=== PATIENT | male | born 1945 ===

== ENCOUNTER 2020-01-07 17:12 | Emergency (ER) | payer MEDICARE, OTHER, SELFPAY ==
[2020-01-07 17:20] VITALS: BP 81/63; PULSE 91; RESP 18; TEMP 36.8; O2SAT 97
[2020-01-07 17:33] VITALS: BP 94/67; PULSE 90; RESP 23; O2SAT 99
--- NOTE | 2020-01-07 17:38 | XRR_ITS ---
PROCEDURE INFORMATION: Exam: XR Chest, 1 View Exam date and time: 01/07/2020 5:39 PM Age: 74 years old Clinical indication: Other: Syncope TECHNIQUE: Imaging protocol: XR of the chest Views: 1 view. COMPARISON: No relevant prior studies available. FINDINGS: Lungs: Unremarkable. No consolidation. Pleural space: Unremarkable. No pleural effusion. No pneumothorax. Heart/Mediastinum: Unremarkable. No cardiomegaly. Bones/joints: Unremarkable. XR/XR chest 1V portable [id number] IMPRESSION: No acute findings.
--- NOTE | 2020-01-07 17:38 | ECG_ITS ---
[facility] Test Date: 2020-01-07 Pat Name: JAY ESTRADA Department: Room: Gender: Male On Call Pharmacy Technician: : [id number] Requested By: Morenita Armenta Order Number: [id number] Misti MD: Eliseo Ghosh M.D. Measurements Intervals [place] Rate: 89 P: 60 TN: 192 QRS: -81 QRSD: 131 T: 76 QT: 395 QTc: 482 Interpretive Statements SINUS RHYTHM WITH OCCASIONAL ECTOPIC PREMATURE COMPLEXES RIGHT BUNDLE BRANCH BLOCK [120+ ms QRS DURATION, UPRIGHT V1, 40+ ms S IN I/aVL/V4/V5/V6] Possible ANTERIOR MYOCARDIAL INFARCTION , PROBABLY RECENT [40+ ms Q WAVE AND/OR ST/T ABNORMALITY IN V3/V4] Possible INFERIOR MYOCARDIAL INFARCTION , OF INDETERMINATE AGE [40+ ms Q WAVE AND/OR ST/T ABNORMALITY IN II/aVF] No previous ECG available for comparison Electronically Signed On 01-08-2020 8:04:13 CDT by Eliseo Ghosh M.D. [id number]
--- NOTE | 2020-01-07 17:41 | ED_ITS ---
Documented by User: Morenita Dwyer MD 01/09/20 10:57 HPI - Syncope General: Chief Complaint: Syncope Stated Complaint: SYNCOPE Time Seen by Provider: 01/07/20 17:15 History of Present Illness: HPI narrative: This patient is a 74-year-old male who presents with a syncopal episode and possibly cardiac arrest briefly. He [place] of [place] in [place] and traveled up here yesterday to visit family. He said he had a dizzy spell yesterday while traveling. He has a history of having episodes of dizziness and did not think anything of it. He did not really eat anything yesterday until the evening when he had a ham orourke dwich and some banana pudding. This morning he ate a couple of eggs and toast. This afternoon he was at his sister's house and sitting outside. He was in the shade with the breeze blowing but family is concerned he may have been overheated. He did not eat lunch. He had been drinking some water. At around 3:00 family started feeling concerned that he was not acting right. He was not really responsive and they noted that his hands seem to be cramping up. This gradually worsened over a couple of hours and then he was noted to slump over in his chair. They noted that he was not breathing and laid him back on the ground. His family did CPR for about 1 minute and he became conscious again. They turned him on his side and quite a bit of saliva came out. Not emesis. The patient has no recollection of this. He said he did feel tired and had a sour stomach today. He had some loose bowel movements in the morning. He denies chest pain or palpitations. He denies cough or fever. He has a history of hypertension but is otherwise pretty healthy and active. There is family history of stroke and cardiac disease. He does not have any exposure to COVID that he knows of. He does not live in an area where it is particularly prevalent. complaint: loss of consciousness and collapsed Onset (ago): hour(s) (Just prior to arrival) Associated symptoms: Deny abdominal pain, chest pain, fever(s), headache(s) or nausea Review of Systems General: Reports: 10 or more systems reviewed and unremarkable except in HPI and below Const: Reports: fatigue; Denies: fever(s), chills or malaise Eyes: Denies: change in vision ENMT: Denies: odynophagia Card: Denies: chest pain or swelling of feet/ankles Resp: Denies: dyspnea, productive cough or non-productive cough GI: Reports: diarrhea; Denies: abdominal pain, nausea or vomiting : Denies: flank pain Musc: Denies: neck pain or back pain Skin/Breast: Denies: rash Neuro: Denies: headache(s), numbness in extremities or weakness in extremities Donald/Lymph: Denies: easy bruising or easy bleeding PFS ED PFSH: Medical History (Updated 01/07/20 @ 20:05 by Susu Hernandez MD) Hypertension Physical Exam Const: COMMON NORMALS: no acute distress, patient oriented x3, no limitations and alert GENERAL APPEARANCE: cooperative and comfortable HENMT: HEAD & SCALP: normal to inspection FACE & SINUS: normal facial exam Eye: GENERAL EYE: appearance normal, both eyes and all related structures Neck/C-Spine: COMMON NORMALS: supple, no meningeal signs and no JVD Chest: COMMONS NORMALS: normal inspection of the chest Resp: COMMON NORMALS: normal respiratory effort, No use of accessory muscles and clear to auscultation bilaterally AUSCULTATION: clear to auscultation bilaterally Cardio: COMMON NORMALS: no JVD, regular rate, regular rhythm and No murmurs present (Cardio) RATE: regular rate RHYTHM: regular rhythm GI: COMMON NORMALS: Normal to inspection, nondistended, normoactive bowel sounds present, Soft to palpation and non-tender INSPECTION: Yes normal to inspection AUSCULTATION: Yes normoactive bowel sounds PALPATION: Yes Soft to palpation Back/Pelvis: COMMON NORMALS: thoracic and lumbar spine normal to inspection Extremity: COMMON NORMALS: normal to inspection Neuro: COMMON NORMALS: patient oriented x3, moves all extremities, no focal motor deficits and no sensory deficits noted SENSORIUM/ORIENTATION: Yes alert MENINGEAL SIGNS: Yes no meningeal signs Psych: COMMON NORMALS: mental status grossly normal, cooperative and normal affect Skin: COMMON NORMALS: no rashes or lesions noted and turgor normal GENERAL SKIN EXAM: no rashes or lesions noted and turgor normal Course Vital Signs: Vital signs: Vital Signs Temperature 98.2 F 01/07/20 17:20 Pulse Rate 88 01/07/20 23:33 Respiratory Rate 16 01/07/20 23:33 Blood Pressure 140/93 01/07/20 23:33 Pulse Oximetry 99 01/07/20 23:33 MDM - Syncope MDM Narrative: Medical decision making narrative: Patient with gradual onset of altered mental status culminating in a syncopal episode. Per untrained bystanders he was not breathing and had no pulse and CPR was done for about a minute. He is hypotensive in the ED with blood pressures in the 80s and 90s systolic. His EKG is abnormal with a right bundle branch block and inferior Q waves. No old EKGs available for comparison. He is back to baseline as far as mental status. Very concerning presentation and he will require admission. Lab Data: Labs: Lab Results 01/07/20 01/07/20 01/07/20 Range/Units 17:43 17:58 17:58 WBC 14.2 H (4.0-10.0) 10^3/ uL RBC 5.50 H (4.1-5.3) 10^6/u L Hgb 15.8 (11.7-16.6) g/dL Hct 47.0 (42.0-52.0) % MCV 85.5 (80-94) fL MCH 28.7 (28.0-34.0) pg MCHC 33.6 (30.0-36.0) g/dL RDW 13.3 (12.1-15.1) % Plt Count 193 (130-400) 10^3/c mm MPV 11.2 H (7.4-10.4) fL Neut % (Auto) 72.6 % Lymph % (Auto) 17.6 % [place] % (Auto) 7.9 % Eos % (Auto) 0.4 % Baso % (Auto) 1.1 % Neut # (Auto) 10.36 H (1.8-7.7) 10^3/u L Lymph # (Auto) 2.5 (0.8-4.8) 10^3/u L [place] # (Auto) 1.1 H (0.2-0.9) 10^3/u L Eos # (Auto) 0.1 (0.0-0.8) 10^3/u L Baso # (Auto) 0.2 H (0.0-0.1) 10^3/u L Nucleated RBC % (a uto) 0 % Nucleated RBCs # 0.0 /100WBC ESR 10 (0-10) mm/hr PT (10.5-13.3) SECO NDS INR (0.8-1.2) Fibrinogen (184-529) mg/dL D-Dimer (0-0.59) ug/mIFE U Sodium (136-145) mmol/L Potassium (3.5-5.1) mmol/L Chloride (98-107) mmol/L Carbon Dioxide (22-29) mmol/L Anion Gap (5-19) BUN (8-23) mg/dL Creatinine (0.7-1.2) mg/dL GFR Calculation Glucose (65-115) mg/dL POC Glucose 97 (70-110) mg/dL Calculated Osmolal ity (285-295) mOsm/k g Lactate (0.5-2.2) mmol/L Uric Acid (3.4-7.0) mg/dL Calcium (8.5-10.5) mg/dL Magnesium (1.7-2.3) mg/dL Ferritin (30-400) ng/mL Total Bilirubin (0.15-1.2) mg/dL AST (0-40) U/L ALT (0-41) U/L Alkaline Phosphata se (40-130) IU/L Lactate Dehydrogen ase (135-225) U/L Creatine Kinase (39-308) U/L CK-MB (CK-2) (0-10.4) ng/mL CK-MB (CK-2) Rel I ndex (0.0-5.3) % Troponin T Baselin e (0-15) ng/L Troponin T 120 Min [place] (0-15) ng/L Delta Troponin T (0-10) ABS# C-Reactive Protein (0.0-4.9) mg/L NT-Pro-B Natriuret Pep (0-125) pg/mL Total Protein (6.6-8.7) g/dL Albumin (3.5-5.2) g/dL Globulin (1.3-4.6) g/dL Procalcitonin (0-0.5) ng/mL Ethyl Alcohol (0-10) mg/dL 01/07/20 01/07/20 01/07/20 Range/Units 17:58 17:58 17:58 WBC (4.0-10.0) 10^3/ uL RBC (4.1-5.3) 10^6/u L Hgb (11.7-16.6) g/dL Hct (42.0-52.0) % MCV (80-94) fL MCH (28.0-34.0) pg MCHC (30.0-36.0) g/dL RDW (12.1-15.1) % Plt Count (130-400) 10^3/c mm MPV (7.4-10.4) fL Neut % (Auto) % Lymph % (Auto) % [place] % (Auto) % Eos % (Auto) % Baso % (Auto) % Neut # (Auto) (1.8-7.7) 10^3/u L Lymph # (Auto) (0.8-4.8) 10^3/u L [place] # (Auto) (0.2-0.9) 10^3/u L Eos # (Auto) (0.0-0.8) 10^3/u L Baso # (Auto) (0.0-0.1) 10^3/u L Nucleated RBC % (a uto) % Nucleated RBCs # /100WBC ESR (0-10) mm/hr PT 13.10 (10.5-13.3) SECO NDS INR 0.97 (0.8-1.2) Fibrinogen (184-529) mg/dL D-Dimer 0.79 H (0-0.59) ug/mIFE U Sodium 132 L (136-145) mmol/L Potassium 4.3 (3.5-5.1) mmol/L Chloride 96 L (98-107) mmol/L Carbon Dioxide 21 L (22-29) mmol/L Anion Gap 19.3 H (5-19) BUN 22 (8-23) mg/dL Creatinine 2.0 H (0.7-1.2) mg/dL GFR Calculation Not Reportable Glucose 87 (65-115) mg/dL POC Glucose (70-110) mg/dL Calculated Osmolal ity 270 L (285-295) mOsm/k g Lactate 3.2 H (0.5-2.2) mmol/L Uric Acid (3.4-7.0) mg/dL Calcium 9.4 (8.5-10.5) mg/dL Magnesium 1.8 (1.7-2.3) mg/dL Ferritin (30-400) ng/mL Total Bilirubin 0.6 (0.15-1.2) mg/dL AST 20 (0-40) U/L ALT 27 (0-41) U/L Alkaline Phosphata se 51 (40-130) IU/L Lactate Dehydrogen ase (135-225) U/L Creatine Kinase (39-308) U/L CK-MB (CK-2) (0-10.4) ng/mL CK-MB (CK-2) Rel I ndex (0.0-5.3) % Troponin T Baselin e (0-15) ng/L Troponin T 120 Min [place] (0-15) ng/L Delta Troponin T (0-10) ABS# C-Reactive Protein 3.7 (0.0-4.9) mg/L NT-Pro-B Natriuret Pep (0-125) pg/mL Total Protein 7.0 (6.6-8.7) g/dL Albumin 3.8 (3.5-5.2) g/dL Globulin 3.2 (1.3-4.6) g/dL Procalcitonin 0.18 (0-0.5) ng/mL Ethyl Alcohol 18 H (0-10) mg/dL 01/07/20 01/07/20 01/07/20 Range/Units 17:58 17:58 19:54 WBC (4.0-10.0) 10^3/ uL RBC (4.1-5.3) 10^6/u L Hgb (11.7-16.6) g/dL Hct (42.0-52.0) % MCV (80-94) fL MCH (28.0-34.0) pg MCHC (30.0-36.0) g/dL RDW (12.1-15.1) % Plt Count (130-400) 10^3/c mm MPV (7.4-10.4) fL Neut % (Auto) % Lymph % (Auto) % [place] % (Auto) % Eos % (Auto) % Baso % (Auto) % Neut # (Auto) (1.8-7.7) 10^3/u L Lymph # (Auto) (0.8-4.8) 10^3/u L [place] # (Auto) (0.2-0.9) 10^3/u L Eos # (Auto) (0.0-0.8) 10^3/u L Baso # (Auto) (0.0-0.1) 10^3/u L Nucleated RBC % (a uto) % Nucleated RBCs # /100WBC ESR (0-10) mm/hr PT (10.5-13.3) SECO NDS INR (0.8-1.2) Fibrinogen (184-529) mg/dL D-Dimer (0-0.59) ug/mIFE U Sodium (136-145) mmol/L Potassium (3.5-5.1) mmol/L Chloride (98-107) mmol/L Carbon Dioxide (22-29) mmol/L Anion Gap (5-19) BUN (8-23) mg/dL Creatinine (0.7-1.2) mg/dL GFR Calculation Glucose (65-115) mg/dL POC Glucose (70-110) mg/dL Calculated Osmolal ity (285-295) mOsm/k g Lactate (0.5-2.2) mmol/L Uric Acid 7.5 H (3.4-7.0) mg/dL Calcium (8.5-10.5) mg/dL Magnesium (1.7-2.3) mg/dL Ferritin 491 H (30-400) ng/mL Total Bilirubin (0.15-1.2) mg/dL AST (0-40) U/L ALT (0-41) U/L Alkaline Phosphata se (40-130) IU/L Lactate Dehydrogen ase 173 (135-225) U/L Creatine Kinase 149 (39-308) U/L CK-MB (CK-2) 13.2 H (0-10.4) ng/mL CK-MB (CK-2) Rel I ndex 8.8 H (0.0-5.3) % Troponin T Baselin e 123 H* (0-15) ng/L Troponin T 120 Min [place] 159.3 H (0-15) ng/L Delta Troponin T 36.3 H* (0-10) ABS# C-Reactive Protein (0.0-4.9) mg/L NT-Pro-B Natriuret Pep 1872 H (0-125) pg/mL Total Protein (6.6-8.7) g/dL Albumin (3.5-5.2) g/dL Globulin (1.3-4.6) g/dL Procalcitonin (0-0.5) ng/mL Ethyl Alcohol (0-10) mg/dL 01/07/20 Range/Units 19:54 WBC (4.0-10.0) 10^3/ uL RBC (4.1-5.3) 10^6/u L Hgb (11.7-16.6) g/dL Hct (42.0-52.0) % MCV (80-94) fL MCH (28.0-34.0) pg MCHC (30.0-36.0) g/dL RDW (12.1-15.1) % Plt Count (130-400) 10^3/c mm MPV (7.4-10.4) fL Neut % (Auto) % Lymph % (Auto) % [place] % (Auto) % Eos % (Auto) % Baso % (Auto) % Neut # (Auto) (1.8-7.7) 10^3/u L Lymph # (Auto) (0.8-4.8) 10^3/u L [place] # (Auto) (0.2-0.9) 10^3/u L Eos # (Auto) (0.0-0.8) 10^3/u L Baso # (Auto) (0.0-0.1) 10^3/u L Nucleated RBC % (a uto) % Nucleated RBCs # /100WBC ESR (0-10) mm/hr PT (10.5-13.3) SECO NDS INR (0.8-1.2) Fibrinogen 401 (184-529) mg/dL D-Dimer (0-0.59) ug/mIFE U Sodium (136-145) mmol/L Potassium (3.5-5.1) mmol/L Chloride (98-107) mmol/L Carbon Dioxide (22-29) mmol/L Anion Gap (5-19) BUN (8-23) mg/dL Creatinine (0.7-1.2) mg/dL GFR Calculation Glucose (65-115) mg/dL POC Glucose (70-110) mg/dL Calculated Osmolal ity (285-295) mOsm/k g Lactate (0.5-2.2) mmol/L Uric Acid (3.4-7.0) mg/dL Calcium (8.5-10.5) mg/dL Magnesium (1.7-2.3) mg/dL Ferritin (30-400) ng/mL Total Bilirubin (0.15-1.2) mg/dL AST (0-40) U/L ALT (0-41) U/L Alkaline Phosphata se (40-130) IU/L Lactate Dehydrogen ase (135-225) U/L Creatine Kinase (39-308) U/L CK-MB (CK-2) (0-10.4) ng/mL CK-MB (CK-2) Rel I ndex (0.0-5.3) % Troponin T Baselin e (0-15) ng/L Troponin T 120 Min [place] (0-15) ng/L Delta Troponin T (0-10) ABS# C-Reactive Protein (0.0-4.9) mg/L NT-Pro-B Natriuret Pep (0-125) pg/mL Total Protein (6.6-8.7) g/dL Albumin (3.5-5.2) g/dL Globulin (1.3-4.6) g/dL Procalcitonin (0-0.5) ng/mL Ethyl Alcohol (0-10) mg/dL EKG Data^: EKG 1: EKG interpretation date: 01/07/20 EKG interpretation time: 17:46 Interpretation: Sinus rhythm, ectopic premature complexes. Right bundle branch block. Rate is 89. WA interval is 192. QRS duration is 132. QTc is 442. There are Q waves in the inferior leads. Trace of elevation possibly in lead II and III. There are flipped T waves in aVL as well as V1 through V3. No old EKG available for comparison. Discharge Plan Discharge Prescriptions: No Action meclizine 25 mg tablet 25 mg PO TID PRN (Reason: Dizziness) RF: 0 lisinopril-hydrochlorothiazide 20-25 mg tablet 1 tab PO DAILY RF: 0 Discharge Date/Time: 01/07/20 23:35 Coding Level of Care Code ED Yard Switch Operator for Chg Fwd Exam Comprehensive Documented by User: Bharathi Dueñas, 01/07/20 23:14 HPI - Syncope General: Chief Complaint: Syncope Stated Complaint: SYNCOPE Time Seen by Provider: 01/07/20 17:15 PFS ED PFSH: Medical History (Updated 01/07/20 @ 20:05 by Susu Hernandez MD) Hypertension Course Vital Signs: Vital signs: Vital Signs Temperature 98.2 F 01/07/20 17:20 Pulse Rate 88 01/07/20 23:33 Respiratory Rate 16 01/07/20 23:33 Blood Pressure 140/93 01/07/20 23:33 Pulse Oximetry 99 01/07/20 23:33 MDM - Syncope MDM Narrative: Medical decision making narrative: 74-year-old male checked out to me at shift change by Dr. Dwyer. This gentleman has an elevated troponin of 123 initially, and a delta of 36. His EKG did not change significantly over the course of 2 hours, but again has inferior Q waves as well as T wave inversions anteriorly. His blood pressure is remained stable. He denies any chest pain. He has been given Lovenox, aspirin, and a statin. His d-dimer is elevated, however his creatinine is 2, we prefer to treat the potential for pulmonary embolism with Lovenox empirically since he needs it for the troponin elevation anyway. We discussed admission here in consultation with cardiology. Patient and family request that he go to [facility] in [place]. Transfer has been arranged. He will stop through the ER there. Lab Data: Labs: Lab Results 01/07/20 01/07/20 01/07/20 Range/Units 17:43 17:58 17:58 WBC 14.2 H (4.0-10.0) 10^3/ uL RBC 5.50 H (4.1-5.3) 10^6/u L Hgb 15.8 (11.7-16.6) g/dL Hct 47.0 (42.0-52.0) % MCV 85.5 (80-94) fL MCH 28.7 (28.0-34.0) pg MCHC 33.6 (30.0-36.0) g/dL RDW 13.3 (12.1-15.1) % Plt Count 193 (130-400) 10^3/c mm MPV 11.2 H (7.4-10.4) fL Neut % (Auto) 72.6 % Lymph % (Auto) 17.6 % [place] % (Auto) 7.9 % Eos % (Auto) 0.4 % Baso % (Auto) 1.1 % Neut # (Auto) 10.36 H (1.8-7.7) 10^3/u L Lymph # (Auto) 2.5 (0.8-4.8) 10^3/u L [place] # (Auto) 1.1 H (0.2-0.9) 10^3/u L Eos # (Auto) 0.1 (0.0-0.8) 10^3/u L Baso # (Auto) 0.2 H (0.0-0.1) 10^3/u L Nucleated RBC % (a uto) 0 % Nucleated RBCs # 0.0 /100WBC ESR 10 (0-10) mm/hr PT (10.5-13.3) SECO NDS INR (0.8-1.2) Fibrinogen (184-529) mg/dL D-Dimer (0-0.59) ug/mIFE U Sodium (136-145) mmol/L Potassium (3.5-5.1) mmol/L Chloride (98-107) mmol/L Carbon Dioxide (22-29) mmol/L Anion Gap (5-19) BUN (8-23) mg/dL Creatinine (0.7-1.2) mg/dL GFR Calculation Glucose (65-115) mg/dL POC Glucose 97 (70-110) mg/dL Calculated Osmolal ity (285-295) mOsm/k g Lactate (0.5-2.2) mmol/L Uric Acid (3.4-7.0) mg/dL Calcium (8.5-10.5) mg/dL Magnesium (1.7-2.3) mg/dL Ferritin (30-400) ng/mL Total Bilirubin (0.15-1.2) mg/dL AST (0-40) U/L ALT (0-41) U/L Alkaline Phosphata se (40-130) IU/L Lactate Dehydrogen ase (135-225) U/L Creatine Kinase (39-308) U/L CK-MB (CK-2) (0-10.4) ng/mL CK-MB (CK-2) Rel I ndex (0.0-5.3) % Troponin T Baselin e (0-15) ng/L Troponin T 120 Min [place] (0-15) ng/L Delta Troponin T (0-10) ABS# C-Reactive Protein (0.0-4.9) mg/L NT-Pro-B Natriuret Pep (0-125) pg/mL Total Protein (6.6-8.7) g/dL Albumin (3.5-5.2) g/dL Globulin (1.3-4.6) g/dL Procalcitonin (0-0.5) ng/mL Ethyl Alcohol (0-10) mg/dL 01/07/20 01/07/20 01/07/20 Range/Units 17:58 17:58 17:58 WBC (4.0-10.0) 10^3/ uL RBC (4.1-5.3) 10^6/u L Hgb (11.7-16.6) g/dL Hct (42.0-52.0) % MCV (80-94) fL MCH (28.0-34.0) pg MCHC (30.0-36.0) g/dL RDW (12.1-15.1) % Plt Count (130-400) 10^3/c mm MPV (7.4-10.4) fL Neut % (Auto) % Lymph % (Auto) % [place] % (Auto) % Eos % (Auto) % Baso % (Auto) % Neut # (Auto) (1.8-7.7) 10^3/u L Lymph # (Auto) (0.8-4.8) 10^3/u L [place] # (Auto) (0.2-0.9) 10^3/u L Eos # (Auto) (0.0-0.8) 10^3/u L Baso # (Auto) (0.0-0.1) 10^3/u L Nucleated RBC % (a uto) % Nucleated RBCs # /100WBC ESR (0-10) mm/hr PT 13.10 (10.5-13.3) SECO NDS INR 0.97 (0.8-1.2) Fibrinogen (184-529) mg/dL D-Dimer 0.79 H (0-0.59) ug/mIFE U Sodium 132 L (136-145) mmol/L Potassium 4.3 (3.5-5.1) mmol/L Chloride 96 L (98-107) mmol/L Carbon Dioxide 21 L (22-29) mmol/L Anion Gap 19.3 H (5-19) BUN 22 (8-23) mg/dL Creatinine 2.0 H (0.7-1.2) mg/dL GFR Calculation Not Reportable Glucose 87 (65-115) mg/dL POC Glucose (70-110) mg/dL Calculated Osmolal ity 270 L (285-295) mOsm/k g Lactate 3.2 H (0.5-2.2) mmol/L Uric Acid (3.4-7.0) mg/dL Calcium 9.4 (8.5-10.5) mg/dL Magnesium 1.8 (1.7-2.3) mg/dL Ferritin (30-400) ng/mL Total Bilirubin 0.6 (0.15-1.2) mg/dL AST 20 (0-40) U/L ALT 27 (0-41) U/L Alkaline Phosphata se 51 (40-130) IU/L Lactate Dehydrogen ase (135-225) U/L Creatine Kinase (39-308) U/L CK-MB (CK-2) (0-10.4) ng/mL CK-MB (CK-2) Rel I ndex (0.0-5.3) % Troponin T Baselin e (0-15) ng/L Troponin T 120 Min [place] (0-15) ng/L Delta Troponin T (0-10) ABS# C-Reactive Protein 3.7 (0.0-4.9) mg/L NT-Pro-B Natriuret Pep (0-125) pg/mL Total Protein 7.0 (6.6-8.7) g/dL Albumin 3.8 (3.5-5.2) g/dL Globulin 3.2 (1.3-4.6) g/dL Procalcitonin 0.18 (0-0.5) ng/mL Ethyl Alcohol 18 H (0-10) mg/dL 01/07/20 01/07/20 01/07/20 Range/Units 17:58 17:58 19:54 WBC (4.0-10.0) 10^3/ uL RBC (4.1-5.3) 10^6/u L Hgb (11.7-16.6) g/dL Hct (42.0-52.0) % MCV (80-94) fL MCH (28.0-34.0) pg MCHC (30.0-36.0) g/dL RDW (12.1-15.1) % Plt Count (130-400) 10^3/c mm MPV (7.4-10.4) fL Neut % (Auto) % Lymph % (Auto) % [place] % (Auto) % Eos % (Auto) % Baso % (Auto) % Neut # (Auto) (1.8-7.7) 10^3/u L Lymph # (Auto) (0.8-4.8) 10^3/u L [place] # (Auto) (0.2-0.9) 10^3/u L Eos # (Auto) (0.0-0.8) 10^3/u L Baso # (Auto) (0.0-0.1) 10^3/u L Nucleated RBC % (a uto) % Nucleated RBCs # /100WBC ESR (0-10) mm/hr PT (10.5-13.3) SECO NDS INR (0.8-1.2) Fibrinogen (184-529) mg/dL D-Dimer (0-0.59) ug/mIFE U Sodium (136-145) mmol/L Potassium (3.5-5.1) mmol/L Chloride (98-107) mmol/L Carbon Dioxide (22-29) mmol/L Anion Gap (5-19) BUN (8-23) mg/dL Creatinine (0.7-1.2) mg/dL GFR Calculation Glucose (65-115) mg/dL POC Glucose (70-110) mg/dL Calculated Osmolal ity (285-295) mOsm/k g Lactate (0.5-2.2) mmol/L Uric Acid 7.5 H (3.4-7.0) mg/dL Calcium (8.5-10.5) mg/dL Magnesium (1.7-2.3) mg/dL Ferritin 491 H (30-400) ng/mL Total Bilirubin (0.15-1.2) mg/dL AST (0-40) U/L ALT (0-41) U/L Alkaline Phosphata se (40-130) IU/L Lactate Dehydrogen ase 173 (135-225) U/L Creatine Kinase 149 (39-308) U/L CK-MB (CK-2) 13.2 H (0-10.4) ng/mL CK-MB (CK-2) Rel I ndex 8.8 H (0.0-5.3) % Troponin T Baselin e 123 H* (0-15) ng/L Troponin T 120 Min [place] 159.3 H (0-15) ng/L Delta Troponin T 36.3 H* (0-10) ABS# C-Reactive Protein (0.0-4.9) mg/L NT-Pro-B Natriuret Pep 1872 H (0-125) pg/mL Total Protein (6.6-8.7) g/dL Albumin (3.5-5.2) g/dL Globulin (1.3-4.6) g/dL Procalcitonin (0-0.5) ng/mL Ethyl Alcohol (0-10) mg/dL 01/07/20 Range/Units 19:54 WBC (4.0-10.0) 10^3/ uL RBC (4.1-5.3) 10^6/u L Hgb (11.7-16.6) g/dL Hct (42.0-52.0) % MCV (80-94) fL MCH (28.0-34.0) pg MCHC (30.0-36.0) g/dL RDW (12.1-15.1) % Plt Count (130-400) 10^3/c mm MPV (7.4-10.4) fL Neut % (Auto) % Lymph % (Auto) % [place] % (Auto) % Eos % (Auto) % Baso % (Auto) % Neut # (Auto) (1.8-7.7) 10^3/u L Lymph # (Auto) (0.8-4.8) 10^3/u L [place] # (Auto) (0.2-0.9) 10^3/u L Eos # (Auto) (0.0-0.8) 10^3/u L Baso # (Auto) (0.0-0.1) 10^3/u L Nucleated RBC % (a uto) % Nucleated RBCs # /100WBC ESR (0-10) mm/hr PT (10.5-13.3) SECO NDS INR (0.8-1.2) Fibrinogen 401 (184-529) mg/dL D-Dimer (0-0.59) ug/mIFE U Sodium (136-145) mmol/L Potassium (3.5-5.1) mmol/L Chloride (98-107) mmol/L Carbon Dioxide (22-29) mmol/L Anion Gap (5-19) BUN (8-23) mg/dL Creatinine (0.7-1.2) mg/dL GFR Calculation Glucose (65-115) mg/dL POC Glucose (70-110) mg/dL Calculated Osmolal ity (285-295) mOsm/k g Lactate (0.5-2.2) mmol/L Uric Acid (3.4-7.0) mg/dL Calcium (8.5-10.5) mg/dL Magnesium (1.7-2.3) mg/dL Ferritin (30-400) ng/mL Total Bilirubin (0.15-1.2) mg/dL AST (0-40) U/L ALT (0-41) U/L Alkaline Phosphata se (40-130) IU/L Lactate Dehydrogen ase (135-225) U/L Creatine Kinase (39-308) U/L CK-MB (CK-2) (0-10.4) ng/mL CK-MB (CK-2) Rel I ndex (0.0-5.3) % Troponin T Baselin e (0-15) ng/L Troponin T 120 Min [place] (0-15) ng/L Delta Troponin T (0-10) ABS# C-Reactive Protein (0.0-4.9) mg/L NT-Pro-B Natriuret Pep (0-125) pg/mL Total Protein (6.6-8.7) g/dL Albumin (3.5-5.2) g/dL Globulin (1.3-4.6) g/dL Procalcitonin (0-0.5) ng/mL Ethyl Alcohol (0-10) mg/dL Discharge Plan Discharge Prescriptions: No Action meclizine 25 mg tablet 25 mg PO TID PRN (Reason: Dizziness) RF: 0 lisinopril-hydrochlorothiazide 20-25 mg tablet 1 tab PO DAILY RF: 0 Discharge Date/Time: 01/07/20 23:35 Coding Level of Care Code ED Yard Switch Operator for Chg Fwd Exam Comprehensive
[2020-01-07] MEDS: sodium chloride 0.9% 1,000 ML 999 ML IV (17:43)
[2020-01-07 17:48] LABS: Glucose Point of Care 97 mg/dL (70-110)
[2020-01-07 18:21] LABS: Basophils # 0.2 10^3/uL (0.0-0.1); Basophils % 1.1 %; Eosinophils # 0.1 10^3/uL (0.0-0.8); Eosinophils % 0.4 %; Hemoglobin 15.8 g/dL (11.7-16.6); Lymphocytes # 2.5 10^3/uL (0.8-4.8); Lymphocytes % 17.6 %; Mean Corpuscular HGB Conc 33.6 g/dL (30.0-36.0); Mean Corpuscular Hemoglobin 28.7 pg (28.0-34.0); Mean Corpuscular Volume 85.5 fL (80-94); Mean Platelet Volume 11.2 fL (7.4-10.4); Monocytes # 1.1 10^3/uL (0.2-0.9); Monocytes % 7.9 %; Neutrophils # 10.36 10^3/uL (1.8-7.7); Neutrophils % 72.6 %; Nucleated Red Blood Cells % 0 %; Platelet Count 193 10^3/cmm (130-400); Red Cell Distribution Width 13.3 % (12.1-15.1); White Blood Count 14.2 10^3/uL (4.0-10.0)
[2020-01-07 18:30] LABS: INR 0.97 (0.8-1.2)
[2020-01-07 18:33] VITALS: BP 119/79; PULSE 96; RESP 16; O2SAT 98
[2020-01-07 18:41] LABS: Lactate (Lactic Acid level) 3.2 mmol/L (0.5-2.2)
[2020-01-07 18:43] LABS: D Dimer 0.79 ug/mIFEU (0-0.59)
[2020-01-07 18:58] LABS: Troponin(5th) Baseline 123 ng/L (0-15)
[2020-01-07 19:00] LABS: Erythrocyte Sedimentation Rate 10 mm/hr (0-10)
[2020-01-07 19:16] LABS: Procalcitonin 0.18 ng/mL (0-0.5)
[2020-01-07 19:27] LABS: Alanine Aminotransferase 27 U/L (0-41); Albumin Level 3.8 g/dL (3.5-5.2); Alcohol Level 18 mg/dL (0-10); Alkaline Phosphatase 51 IU/L (40-130); Anion Gap 19.3 (5-19); Aspartate Amino Transferase 20 U/L (0-40); Blood Urea Nitrogen 22 mg/dL (8-23); C Reactive Protein 3.7 mg/L (0.0-4.9); Calcium 9.4 mg/dL (8.5-10.5); Carbon Dioxide 21 mmol/L (22-29); Chloride 96 mmol/L (98-107); Globulin 3.2 g/dL (1.3-4.6); Glucose 87 mg/dL (65-115); Magnesium 1.8 mg/dL (1.7-2.3); Osmolality Calculated 270 mOsm/kg (285-295); Potassium 4.3 mmol/L (3.5-5.1); Sodium 132 mmol/L (136-145); Total Bilirubin 0.6 mg/dL (0.15-1.2)
--- NOTE | 2020-01-07 19:38 | ECG_ITS ---
[facility] Test Date: 2020-01-07 Pat Name: JAY ESTRADA Department: Room: Gender: Male Legislative Assistant: : [id number] Requested By: Morenita Armenta Order Number: [id number] Misti MD: Eliseo Ghosh M.D. Measurements Intervals [place] Rate: 89 P: 60 MO: 192 QRS: -81 QRSD: 131 T: 76 QT: 395 QTc: 482 Interpretive Statements SINUS RHYTHM WITH OCCASIONAL ECTOPIC PREMATURE COMPLEXES RIGHT BUNDLE BRANCH BLOCK [120+ ms QRS DURATION, UPRIGHT V1, 40+ ms S IN I/aVL/V4/V5/V6] Possible ANTERIOR MYOCARDIAL INFARCTION , PROBABLY RECENT [40+ ms Q WAVE AND/OR ST/T ABNORMALITY IN V3/V4] Possible INFERIOR MYOCARDIAL INFARCTION , OF INDETERMINATE AGE [40+ ms Q WAVE AND/OR ST/T ABNORMALITY IN II/aVF] No previous ECG available for comparison Electronically Signed On 01-08-2020 8:06:38 CDT by Eliseo Ghosh M.D. [id number]
--- NOTE | 2020-01-07 20:00 | P.HP_ITS ---
Providers/Chief Complaint Admitting Physician: Susu Hernandez Primary Care Provider: In [place] Chief Complaint: SYNCOPE History of Present Illness JAY ESTRADA Jr is a 74 year old male Medications/Allergies Home Medications Medication Instructions Recorded Confirmed Last Taken Type lisinopril-hydrochlorothiazide 1 tab PO DAILY 01/07/20 01/07/20 01/07/20 History meclizine 25 mg PO TID PRN 01/07/20 01/07/20 01/06/20 History Allergies Allergy/AdvReac Type Severity Reaction Status Date / Time No Known Allergies Allergy Verified 01/07/20 18:25 PFSH Acute PFSH: Medical History (Updated 01/07/20 @ 20:05 by Susu Hernandez MD) Hypertension Supplemental PFSH Information: Lives in [place], [facility], here visiting family Vitals/I&O/Wt Last Vital Signs Temp 98.2 F 01/07/20 17:20 Pulse 96 01/07/20 18:33 Resp 16 01/07/20 18:33 BP 119/79 01/07/20 18:33 Pulse Ox 98 01/07/20 18:33 01/07/20 01/07/20 01/07/20 06:59 14:59 22:59 Intake Total 1000 / 1000 Balance 1000 / 1000 Data : 01/07/20 17:58 01/07/20 17:58 Other Labs: Laboratory Tests 01/07/20 01/07/20 01/07/20 17:58 17:58 17:58 Neut % (Auto) 72.6 Lymph % (Auto) 17.6 ESR 10 PT 13.10 INR 0.97 D-Dimer 0.79 H Lactate 3.2 H Calcium 9.4 Magnesium 1.8 Total Bilirubin 0.6 AST 20 ALT 27 Alkaline Phos 51 Troponin T Baseline 123 CRP 3.7 Albumin 308 Procalcitonin 0.18 Ethyl Alcohol 18 H CXR: Radiologist's impression: FINDINGS: Lungs: Unremarkable. No consolidation. Pleural space: Unremarkable. No pleural effusion. No pneumothorax. Heart/Mediastinum: Unremarkable. No cardiomegaly. Bones/joints: Unremarkable. XR/XR chest 1V portable [id number] IMPRESSION: No acute findings. Attestations Medical Necessity Statement*: Anticipate a stay greater than 2 midnights in [place] who presented after a syncopal episode with possible arrest. Has EKG changes and elevated troponin. Plans are as indicated. Coding Level of Care Code Acute Director Of Sustainability for Naima Stanton
[2020-01-07 20:16] LABS: Fibrinogen 401 mg/dL (184-529)
[2020-01-07 20:27] LABS: Troponin 5 2HR 159.3 ng/L (0-15); Troponin 5 2HR Delta 36.3 ABS# (0-10)
[2020-01-07 20:32] LABS: CKMB 13.2 ng/mL (0-10.4); CKMB Relative Index 8.8 % (0.0-5.3); Creatine Phosphokinase 149 U/L (39-308); Ferritin 491 ng/mL (30-400); Lactate Dehydrogenase 173 U/L (135-225); NT Pro B Type Natriuretic Pept 1872 pg/mL (0-125); Uric Acid 7.5 mg/dL (3.4-7.0)
[2020-01-07 20:43] VITALS: BP 144/91; PULSE 99; RESP 18; O2SAT 99
[2020-01-07] MEDS: enoxaparin 80 mg/0.8 mL Syringe SUBCUT (20:45)
[2020-01-07] MEDS: atorvastatin 40 mg Tablet PO (20:50)
[2020-01-07 22:09] VITALS: BP 135/92; PULSE 96; RESP 18; O2SAT 98
[2020-01-07 23:33] VITALS: BP 140/93; PULSE 88; RESP 16; O2SAT 99
--- NOTE | 2020-01-07 23:33 | PC.NURSE ---
report given to EMS
== END 2020-01-07 23:35 ==
PROVIDERS: Emergency Medicine; Hospitalist; Emergency Provider Emergency Medicine
DX: R55 Syncope and collapse (principal); I10 Essential (primary) hypertension; Z79.899 Other long term (current) drug therapy
CPT/HCPCS: 12345; 36416; 71045; 80053; 80307; 82550; 82553; 82728; 82962; 83605; 83615; 83735; 83880; 84145; 84484; 84550; 85025; 85378; 85384; 85610; 85651; 86140; 93005; 96360; 96372; 99283; 99284; 99285; J1650; J7030